=== PATIENT | male | born 1985 | race Caucasian/White ===

== ENCOUNTER 2016-08-12 16:45 | Emergency (ER) | payer SELFPAY ==
[~2016-08-12] VITALS: Ht 170.2 cm; Wt 59.9 kg
[2016-08-12] MEDS ORDERED: METOCLOPRAMIDE INJ 10MG/2ML VIAL (J2765) IV ONE (17:45)
[2016-08-12] MEDS ORDERED: KETOROLAC 30 MG/ML VIAL (J1885) IV ONE (17:45)
[2016-08-12] MEDS ORDERED: NS 1,000 ML IV ONE (17:45)
[2016-08-12] MEDS ORDERED: GASTROGRAFIN SOLUTION 30ML (Q9963) PO ONE ×2 (18:15)
[2016-08-12 18:47] LABS: BASO % 0.1 % (0.0-1.0); EOS % 0.2 % (0.0-3.0); LARGE UNSTAINED CELL # 0.3 K/mm3 (0.0-0.4); LARGE UNSTAINED CELL % 2.1 % (0.0-4.0); LYMPH # 1.7 K/mm3 (1.5-4.5); LYMPH % 13.8 % (24.0-44.0); MEAN CORPUSCULAR HEMOGLOBIN 31.7 pg (27.0-33.0); MEAN CORPUSCULAR HGB CONC 34.5 g/dl (32.0-36.5); MONO # 0.8 K/mm3 (0.0-0.8); MONO % 6.2 % (0.0-5.0); NEUTROPHILS # 9.5 K/mm3 (1.8-7.7); NEUTROPHILS % 77.7 % (36.0-66.0); PLATELET COUNT, AUTOMATED 279 k/mm3 (150-450); RED CELL DISTRIBUTION WIDTH 11.5 % (11.5-14.5); WHITE BLOOD COUNT 12.2 K/mm3 (4.0-10.0)
[2016-08-12 19:13] LABS: ALBUMIN 4.2 GM/DL (3.2-5.2); ALBUMIN/GLOBULIN RATIO 1.27 (1.00-1.93); ALKALINE PHOSPHATASE 66 U/L (45-117); ALT/SGPT 32 U/L (12-78); AMYLASE 52 U/L (25-115); ANION GAP 7 MEQ/L (8-16); AST/SGOT 25 U/L (15-37); BILIRUBIN,DIRECT 0.3 MG/DL (0.0-0.2); BILIRUBIN,TOTAL 1.4 MG/DL (0.2-1.0); BLOOD UREA NITROGEN 11 MG/DL (7-18); CALCIUM LEVEL 8.9 MG/DL (8.5-10.1); CARBON DIOXIDE LEVEL 27 MEQ/L (21-32); CHLORIDE LEVEL 105 MEQ/L (98-107); CREATININE FOR GFR 0.77 MG/DL (0.70-1.30); GLOMERULAR FILTRATION RATE > 60.0 (>60); GLUCOSE, FASTING 114 MG/DL (70-105); POTASSIUM SERUM 3.8 MEQ/L (3.5-5.1); SODIUM LEVEL 139 MEQ/L (136-145); TOTAL PROTEIN 7.5 GM/DL (6.4-8.2)
[2016-08-12] MEDS ORDERED: TRIMETHOBENZAMIDE HCL INJ 200 MG/2 ML VIAL (J3250) IM ONE (19:15)
[2016-08-12] MEDS ORDERED: ACETAMINOPHEN 325 MG TAB PO ONE (19:30)
[2016-08-12] MEDS ORDERED: ISOVUE-370 76% 100ML VIAL (Q9967) As Ordered ONE (20:45)
--- NOTE | 2016-08-12 22:00 | REPUSA ---
CLINICAL HISTORY: Diffuse abdominal pain, worse right lower quadrant. Fever, nausea and vomiting. TECHNIQUE: Multiple axial CT images were obtained through the abdomen and pelvis after administratio n of oral and intravenous contrast material. COMMENTS: The liver is of uniform attenuation without mass or defect. There is no intra or extrahepatic biliar y ductal dilatation. The spleen is normal. The gallbladder is within normal limits. The pancreas i s of normal contour and attenuation characteristics. There is no evidence of adrenal mass. Both kidneys demonstrate prompt and equal nephrograms. The kidneys are normal in size, shape and con figuration. There is no evidence of renal or ureteral mass. No renal or ureteral calculi are identi fied. There is no hydroureter or hydronephrosis. No evidence for appendicitis. There is evidence of relative severe circumferential wall thickening i nvolving duodenum and loops of jejunum compatible with severe enteritis. Infectious and inflammatory etiology is considered. No evidence for small or large bowel obstruction. There is no evidence of abdominal ascites or lymphadenopathy. Prostatic calcifications are present. There is no evidence of intrinsic or extrinsic bladder mass. There is no pelvic ascites or lymphaden opathy. Images of the lung bases show no evidence of pleural or parenchymal mass. There are no pleural effus ions. The bony structures are free of lytic or blastic lesions. There is a 5 mm nodule noted in the lingula. There is a 5 mm subpleural nodule noted in the left lower lobe. Consider followup with ded icated chest CT. IMPRESSION: 1. 5 mm nodule noted in the lingula. There is a 5 mm subpleural nodule noted in the left lower lob e. Consider followup with dedicated chest CT. 2. Relative severe circumferential wall thickening involving duodenum and loops of jejunum compatibl e with severe enteritis. Infectious and inflammatory etiology is considered. 3. Prostatic calcifications are present. Thank you for your kind referral of this patient. We appreciate the opportunity to participate in thi s patient's care.
[2016-08-12] MEDS ORDERED: FLAG500T PO (22:14)
[2016-08-12] MEDS ORDERED: CIPR500T89 PO (22:14)
[2016-08-12] MEDS ORDERED: REGL10TA6 PO (22:14)
[2016-08-12] MEDS ORDERED: METOCLOPRAMIDE 10 MG TAB PO ONE (22:15)
[2016-08-12] MEDS ORDERED: metroNIDAZOLE (FLAGYL) 500 MG TAB PO ONE (22:15)
[2016-08-12] MEDS ORDERED: ULTR50TA PO (22:15)
[2016-08-12] MEDS ORDERED: CIPROFLOXACIN 500 MG TAB PO ONE (22:15)
[2016-08-12 22:20] VITALS: BP 115/59
--- NOTE | 2016-08-16 15:21 | ED PDOC ---
Post-Departure Follow-Up certified letter sent to pt re formal read of ct abd/p for fu mlg no pcp listed Hermelinda Quintero MD Aug 16, 2016 15:21
== END 2016-08-12 22:30 | disposition home or self-care (01) ==
LOC: M ED 17:49
DX: K52.9 Noninfective gastroenteritis and colitis, unspecified (principal); F17.200 Nicotine dependence, unspecified, uncomplicated; R91.1 Solitary pulmonary nodule; N42.9 Disorder of prostate, unspecified
CPT/HCPCS: 74177; 80048; 80076; 81001; 82150; 83605; 83690; 85025; 86140; 96372; 96374; 96375; 99284; J1885; J2765; J3250; Q9963; Q9967

== ENCOUNTER 2017-12-09 12:23 | Inpatient (IN) | payer MEDICAID, SELFPAY ==
[2017-12-09] MEDS: FOLIC ACID 1 MG TAB PO (09:00)
[2017-12-09] MEDS: MULTIVITAMINS/MINERALS THERAP 1 TAB PO (09:00)
[2017-12-09] MEDS: NICOTINE 14 MG/24 HR TRANSDERMAL TD (09:00)
[2017-12-09] MEDS: THIAMINE 100 MG TAB PO (09:00)
[2017-12-09] MEDS: ONDANSETRON 4MG/2ML VIAL (J2405) IV ×3 (13:06→23:55)
[2017-12-09] MEDS: NS 1,000 ML IV ×4 (13:06→21:55)
[2017-12-09 13:33] LABS: BASO # 0.1 10^3/uL (0.0-0.2); BASO % 0.2 % (0.0-1.0); HEMATOCRIT 54.5 % (42.0-52.0); HEMOGLOBIN 19.4 g/dl (13.5-17.5); IMMATURE GRANULOCYTE % 1.5 % (0-3.0); LYMPH # 2.5 10^3/uL (1.5-4.5); LYMPH % 8.9 % (24.0-44.0); MEAN CORPUSCULAR HEMOGLOBIN 30.8 pg (27.0-33.0); MEAN CORPUSCULAR HGB CONC 35.6 g/dl (32.0-36.5); MEAN CORPUSCULAR VOLUME 86.5 fl (80.0-96.0); MONO # 1.7 10^3/uL (0.0-0.8); MONO % 6.1 % (0.0-5.0); NEUTROPHILS # 23.3 10^3/uL (1.8-7.7); NEUTROPHILS % 83.3 % (36.0-66.0); PLATELET COUNT, AUTOMATED 496 10^3/uL (150-450); RED CELL DISTRIBUTION WIDTH 12.3 % (11.5-14.5)
[2017-12-09 14:02] LABS: ANION GAP 19 MEQ/L (8-16); BLOOD UREA NITROGEN 38 MG/DL (7-18); CALCIUM LEVEL 11.9 MG/DL (8.5-10.1); CARBON DIOXIDE LEVEL 21 MEQ/L (21-32); CHLORIDE LEVEL 95 MEQ/L (98-107); GLOMERULAR FILTRATION RATE 14.2 (>60); GLUCOSE, FASTING 159 MG/DL (70-100); SODIUM LEVEL 135 MEQ/L (136-145)
[2017-12-09 14:34] LABS: ALBUMIN 5.5 GM/DL (3.2-5.2); ALBUMIN/GLOBULIN RATIO 0.95 (1.00-1.93); ALKALINE PHOSPHATASE 109 U/L (45-117); ALT/SGPT 38 U/L (12-78); AMYLASE 94 U/L (25-115); AST/SGOT 27 U/L (7-37); BILIRUBIN,DIRECT 0.1 MG/DL (0.0-0.2); BILIRUBIN,TOTAL 1.1 MG/DL (0.2-1.0); LIPASE 140 U/L (73-393); TOTAL PROTEIN 11.3 GM/DL (6.4-8.2)
[2017-12-09] MEDS: MORPHINE 2 MG/ML 1ML SYRINGE (J2270) IV ×2 (15:30→19:50)
[2017-12-09 15:50] LABS: VENOUS BASE EXCESS 0.6 (-2.0-2.0); VENOUS HCO3 23.9 MEQ/L (23.0-27.0); VENOUS O2 SATURATION 56.3 % (60.0-80.0); VENOUS PARTIAL PRESSURE CO2 35.1 mmHg (38.0-50.0); VENOUS PARTIAL PRESSURE O2 31.2 mmHg (30.0-50.0); VENOUS PH 7.451 UNITS (7.330-7.430); VENOUS STANDARD HCO3 23.8 MEQ/L
[2017-12-09] MEDS: ACETAMINOPHEN 325 MG TAB PO (16:05)
[2017-12-09 16:19] LABS: KETONE, URINE AUTO RFX NEGATIVE (NEGATIVE); LEUKOCYTE ESTERASE UR AUTO RFX NEGATIVE (NEGATIVE); MUCUS, URINE RFX LARGE (NEGATIVE); NITRITE, URINE AUTO RFX NEGATIVE (NEGATIVE); RBC, URINE AUTO RFX 3 /HPF (0-3); SPECIFIC GRAVITY UR AUTO RFX 1.025 (1.002-1.035); SQUAM EPITHELIAL CELL UR AURFX 1 /HPF (0-6)
[2017-12-09 16:21] LABS: WBC, URINE AUTO RFX 16 /HPF (0-3)
[2017-12-09 16:27] LABS: OSMOLALITY URINE 654 MOSM/KG (500-800)
[2017-12-09 16:32] LABS: LACTIC ACID SEPSIS PROTOCOL 2.6 MMOL/L (0.4-2.0)
[2017-12-09 16:38] LABS: AMPHETAMINES LEVEL URINE NEGATIVE (NEGATIVE); BARBITURATES URINE NEGATIVE (NEGATIVE); BENZODIAZEPINES URINE NEGATIVE (NEGATIVE); CANNABINOIDS URINE POSITIVE (NEGATIVE); CHLORIDE,RANDOM URINE < 10 MEQ/L; COCAINE METABOLITE URINE NEGATIVE (NEGATIVE); METHADONE URINE NEGATIVE (NEGATIVE); OPIATES URINE POSITIVE (NEGATIVE); PHENCYCLIDINE URINE NEGATIVE (NEGATIVE); POTASSIUM RANDOM URINE 97.3 MEQ/L; SODIUM,RANDOM URINE 17 MEQ/L; TOTAL PROTEIN,RANDOM URINE 107.3 MG/DL (0.0-12.0)
[2017-12-09 22:18] LABS: C REACTIVE PROTEIN QUANTITATIV < 0.30 MG/DL (0.00-0.30); CPK CREATINE PHOSPHOKINASE 340 U/L (39-308); ETHYL ALCOHOL (ETHANOL) < 0.003 % (0.000-0.010); MB/CK RELATIVE INDEX 1.18 (< OR =4); SALICYLATE LEVEL < 1.7 MG/DL (5.0-30.0); TROPONIN I 0.02 NG/ML (< 0.10)
[2017-12-09 22:19] LABS: ALBUMIN 3.9 GM/DL (3.2-5.2); ANION GAP 10 MEQ/L (8-16); BLOOD UREA NITROGEN 32 MG/DL (7-18); CALCIUM LEVEL 8.9 MG/DL (8.5-10.1); CARBON DIOXIDE LEVEL 22 MEQ/L (21-32); CHLORIDE LEVEL 107 MEQ/L (98-107); CREATININE FOR GFR 1.79 MG/DL (0.70-1.30); GLOMERULAR FILTRATION RATE 47.4 (>60); GLUCOSE, FASTING 102 MG/DL (70-100); PHOSPHORUS LEVEL 3.8 MG/DL (2.5-4.9); POTASSIUM SERUM 4.2 MEQ/L (3.5-5.1); SODIUM LEVEL 139 MEQ/L (136-145)
[2017-12-09] MEDS: HEPARIN SOD (PORCINE) 5000 UNITS/ML VIAL SC (22:58)
[2017-12-09] MEDS: PIPERACILLIN/TAZOBACTAM SOD 3.375 GM in D5W MINI-BAG PLUS 50 ML IV (23:01)
[2017-12-09 23:34] LABS: CHLAMYDIA DNA AMPLIFICATION NEGATIVE (NEGATIVE); GC DNA AMPLIFICATION NEGATIVE (NEGATIVE)
[2017-12-10] MEDS: METOCLOPRAMIDE INJ 10MG/2ML VIAL (J2765) IV (03:15)
[2017-12-10] MEDS: NS 1,000 ML IV ×2 (04:35→14:44)
[2017-12-10] MEDS: PIPERACILLIN/TAZOBACTAM SOD 3.375 GM in D5W MINI-BAG PLUS 50 ML IV ×3 (06:00→18:00)
[2017-12-10] MEDS: ONDANSETRON 4MG/2ML VIAL (J2405) IV ×4 (07:00→21:23)
[2017-12-10] MEDS: ACETAMINOPHEN TAB 650MG DOSE (2X325MG) PO (07:00)
[2017-12-10 08:05] LABS: BASO % 0.2 % (0.0-1.0); EOS % 0.2 % (0.0-3.0); HEMATOCRIT 38.3 % (42.0-52.0); IMMATURE GRANULOCYTE % 0.8 % (0-3.0); LYMPH # 2.3 10^3/uL (1.5-4.5); LYMPH % 13.9 % (24.0-44.0); MEAN CORPUSCULAR HEMOGLOBIN 31.1 pg (27.0-33.0); MEAN CORPUSCULAR HGB CONC 35.5 g/dl (32.0-36.5); MEAN CORPUSCULAR VOLUME 87.6 fl (80.0-96.0); MONO # 1.7 10^3/uL (0.0-0.8); MONO % 10.5 % (0.0-5.0); NEUTROPHILS # 12.2 10^3/uL (1.8-7.7); NEUTROPHILS % 74.4 % (36.0-66.0); RED BLOOD COUNT 4.37 10^6/uL (4.30-6.10); WHITE BLOOD COUNT 16.4 10^3/uL (4.0-10.0)
[2017-12-10 08:10] LABS: HEMOGLOBIN 13.6 g/dl (13.5-17.5); PLATELET COUNT, AUTOMATED 311 10^3/uL (150-450)
[2017-12-10 08:43] LABS: ALBUMIN 3.8 GM/DL (3.2-5.2); ANION GAP 8 MEQ/L (8-16); BLOOD UREA NITROGEN 27 MG/DL (7-18); CALCIUM LEVEL 8.7 MG/DL (8.5-10.1); CARBON DIOXIDE LEVEL 26 MEQ/L (21-32); CHLORIDE LEVEL 106 MEQ/L (98-107); CPK CREATINE PHOSPHOKINASE 308 U/L (39-308); CREATININE FOR GFR 0.97 MG/DL (0.70-1.30); GLOMERULAR FILTRATION RATE > 60.0 (>60); GLUCOSE, FASTING 112 MG/DL (70-100); MB/CK RELATIVE INDEX 1.17 (< OR =4); PHOSPHORUS LEVEL 2.6 MG/DL (2.5-4.9); POTASSIUM SERUM 3.9 MEQ/L (3.5-5.1); SODIUM LEVEL 140 MEQ/L (136-145); TROPONIN I < 0.02 NG/ML (< 0.10)
[2017-12-10] MEDS: ALBUTEROL SULFATE 2.5 MG/0.5 ML INH NEB SOLN NEB (10:15)
[2017-12-10 10:50] LABS: HIV 1&2 SCREEN CENTAUR NEGATIVE (NEGATIVE)
[2017-12-10] MEDS: NICOTINE 14 MG/24 HR TRANSDERMAL TD (11:24)
[2017-12-10] MEDS: THIAMINE 100 MG TAB PO (11:24)
[2017-12-10] MEDS: FOLIC ACID 1 MG TAB PO (11:24)
[2017-12-10] MEDS: HEPARIN SOD (PORCINE) 5000 UNITS/ML VIAL SC ×2 (11:24→21:21)
[2017-12-10] MEDS: MULTIVITAMINS/MINERALS THERAP 1 TAB PO (11:24)
[2017-12-11] MEDS: PIPERACILLIN/TAZOBACTAM SOD 3.375 GM in D5W MINI-BAG PLUS 50 ML IV ×4 (00:06→18:20)
[2017-12-11 05:07] LABS: BASO % 0.2 % (0.0-1.0); EOS # 0.1 10^3/uL (0.0-0.50); EOS % 0.6 % (0.0-3.0); HEMATOCRIT 34.6 % (42.0-52.0); HEMOGLOBIN 12.1 g/dl (13.5-17.5); IMMATURE GRANULOCYTE % 0.9 % (0-3.0); LYMPH # 2.8 10^3/uL (1.5-4.5); LYMPH % 24.4 % (24.0-44.0); MEAN CORPUSCULAR VOLUME 88.7 fl (80.0-96.0); MONO # 1.4 10^3/uL (0.0-0.8); MONO % 12.1 % (0.0-5.0); NEUTROPHILS # 7.2 10^3/uL (1.8-7.7); NEUTROPHILS % 61.8 % (36.0-66.0); PLATELET COUNT, AUTOMATED 271 10^3/uL (150-450); RED CELL DISTRIBUTION WIDTH 11.9 % (11.5-14.5); WHITE BLOOD COUNT 11.7 10^3/uL (4.0-10.0)
[2017-12-11 05:37] LABS: ALBUMIN 3.5 GM/DL (3.2-5.2); ANION GAP 9 MEQ/L (8-16); BLOOD UREA NITROGEN 15 MG/DL (7-18); CALCIUM LEVEL 8.7 MG/DL (8.5-10.1); CARBON DIOXIDE LEVEL 23 MEQ/L (21-32); CHLORIDE LEVEL 107 MEQ/L (98-107); CREATININE FOR GFR 0.68 MG/DL (0.70-1.30); GLOMERULAR FILTRATION RATE > 60.0 (>60); GLUCOSE, FASTING 106 MG/DL (70-100); PHOSPHORUS LEVEL 2.4 MG/DL (2.5-4.9); POTASSIUM SERUM 3.7 MEQ/L (3.5-5.1); SODIUM LEVEL 139 MEQ/L (136-145)
[2017-12-11] MEDS: NS 1,000 ML IV (06:07)
[2017-12-11] MEDS: NICOTINE 14 MG/24 HR TRANSDERMAL TD (09:53)
[2017-12-11] MEDS: FOLIC ACID 1 MG TAB PO (09:54)
[2017-12-11] MEDS: THIAMINE 100 MG TAB PO (09:54)
[2017-12-11] MEDS: MULTIVITAMINS/MINERALS THERAP 1 TAB PO (09:54)
[2017-12-11] MEDS: HEPARIN SOD (PORCINE) 5000 UNITS/ML VIAL SC ×2 (09:54→20:56)
[2017-12-11] MEDS: INFLUENZA QUADRIVALENT PF VACCINE 0.5ML SYRINGE (90686) IM (09:54)
[2017-12-11] MEDS: ONDANSETRON 4MG/2ML VIAL (J2405) IV ×2 (11:55→21:02)
[2017-12-12] MEDS: PIPERACILLIN/TAZOBACTAM SOD 3.375 GM in D5W MINI-BAG PLUS 50 ML IV ×5 (00:38→23:54)
[2017-12-12 05:55] LABS: BASO % 0.4 % (0.0-1.0); EOS # 0.2 10^3/uL (0.0-0.50); EOS % 2.3 % (0.0-3.0); HEMATOCRIT 35.7 % (42.0-52.0); HEMOGLOBIN 12.7 g/dl (13.5-17.5); IMMATURE GRANULOCYTE % 0.7 % (0-3.0); LYMPH # 2.3 10^3/uL (1.5-4.5); LYMPH % 24.6 % (24.0-44.0); MEAN CORPUSCULAR HEMOGLOBIN 30.7 pg (27.0-33.0); MEAN CORPUSCULAR HGB CONC 35.6 g/dl (32.0-36.5); MEAN CORPUSCULAR VOLUME 86.2 fl (80.0-96.0); MONO # 1.1 10^3/uL (0.0-0.8); MONO % 11.4 % (0.0-5.0); NEUTROPHILS # 5.8 10^3/uL (1.8-7.7); NEUTROPHILS % 60.6 % (36.0-66.0); PLATELET COUNT, AUTOMATED 279 10^3/uL (150-450); RED BLOOD COUNT 4.14 10^6/uL (4.30-6.10); RED CELL DISTRIBUTION WIDTH 11.6 % (11.5-14.5); WHITE BLOOD COUNT 9.5 10^3/uL (4.0-10.0)
[2017-12-12 06:29] LABS: ALBUMIN 3.5 GM/DL (3.2-5.2); ANION GAP 10 MEQ/L (8-16); BLOOD UREA NITROGEN 13 MG/DL (7-18); CALCIUM LEVEL 8.7 MG/DL (8.5-10.1); CARBON DIOXIDE LEVEL 23 MEQ/L (21-32); CHLORIDE LEVEL 107 MEQ/L (98-107); CREATININE FOR GFR 0.67 MG/DL (0.70-1.30); GLOMERULAR FILTRATION RATE > 60.0 (>60); GLUCOSE, FASTING 106 MG/DL (70-100); POTASSIUM SERUM 3.5 MEQ/L (3.5-5.1); SODIUM LEVEL 140 MEQ/L (136-145)
[2017-12-12] MEDS: NICOTINE 14 MG/24 HR TRANSDERMAL TD (08:48)
[2017-12-12] MEDS: THIAMINE 100 MG TAB PO (08:48)
[2017-12-12] MEDS: HEPARIN SOD (PORCINE) 5000 UNITS/ML VIAL SC ×2 (08:48→20:27)
[2017-12-12] MEDS: FOLIC ACID 1 MG TAB PO (08:48)
[2017-12-12] MEDS: MULTIVITAMINS/MINERALS THERAP 1 TAB PO (08:48)
[2017-12-12] MEDS: PANTOPRAZOLE 40MG TAB (PROTONIX) PO (15:19)
[2017-12-12] MEDS: ONDANSETRON 4MG/2ML VIAL (J2405) IV ×2 (15:19→20:27)
[2017-12-12] MEDS: METOCLOPRAMIDE INJ 10MG/2ML VIAL (J2765) IV (18:28)
[2017-12-13] MEDS: ONDANSETRON 4MG/2ML VIAL (J2405) IV (05:15)
[2017-12-13] MEDS: PIPERACILLIN/TAZOBACTAM SOD 3.375 GM in D5W MINI-BAG PLUS 50 ML IV ×3 (05:16→17:55)
[2017-12-13 06:24] LABS: BASO % 0.4 % (0.0-1.0); EOS # 0.3 10^3/uL (0.0-0.50); EOS % 3.1 % (0.0-3.0); HEMATOCRIT 36.9 % (42.0-52.0); HEMOGLOBIN 13.4 g/dl (13.5-17.5); IMMATURE GRANULOCYTE % 0.5 % (0-3.0); LYMPH # 1.7 10^3/uL (1.5-4.5); LYMPH % 19.8 % (24.0-44.0); MEAN CORPUSCULAR HGB CONC 36.3 g/dl (32.0-36.5); MEAN CORPUSCULAR VOLUME 85.4 fl (80.0-96.0); MONO # 0.8 10^3/uL (0.0-0.8); MONO % 9.7 % (0.0-5.0); NEUTROPHILS # 5.5 10^3/uL (1.8-7.7); NEUTROPHILS % 66.5 % (36.0-66.0); PLATELET COUNT, AUTOMATED 299 10^3/uL (150-450); RED BLOOD COUNT 4.32 10^6/uL (4.30-6.10); RED CELL DISTRIBUTION WIDTH 11.3 % (11.5-14.5); WHITE BLOOD COUNT 8.3 10^3/uL (4.0-10.0)
[2017-12-13 06:47] LABS: ALBUMIN 3.5 GM/DL (3.2-5.2); ANION GAP 7 MEQ/L (8-16); BLOOD UREA NITROGEN 13 MG/DL (7-18); CALCIUM LEVEL 8.8 MG/DL (8.5-10.1); CARBON DIOXIDE LEVEL 27 MEQ/L (21-32); CHLORIDE LEVEL 106 MEQ/L (98-107); CREATININE FOR GFR 0.82 MG/DL (0.70-1.30); GLOMERULAR FILTRATION RATE > 60.0 (>60); GLUCOSE, FASTING 111 MG/DL (70-100); PHOSPHORUS LEVEL 3.6 MG/DL (2.5-4.9); POTASSIUM SERUM 3.3 MEQ/L (3.5-5.1); SODIUM LEVEL 140 MEQ/L (136-145)
[2017-12-13] MEDS: POTASSIUM CHLORIDE 10 MEQ SR TABLET PO (07:45)
[2017-12-13] MEDS: FOLIC ACID 1 MG TAB PO (07:50)
[2017-12-13] MEDS: PANTOPRAZOLE 40MG TAB (PROTONIX) PO ×2 (07:51→11:03)
[2017-12-13] MEDS: MULTIVITAMINS/MINERALS THERAP 1 TAB PO (07:51)
[2017-12-13] MEDS: HEPARIN SOD (PORCINE) 5000 UNITS/ML VIAL SC ×2 (07:51→19:50)
[2017-12-13] MEDS: NICOTINE 14 MG/24 HR TRANSDERMAL TD ×2 (07:51→19:50)
[2017-12-13] MEDS: THIAMINE 100 MG TAB PO (07:51)
[2017-12-13 12:03] LABS: HEPATITIS A ANTIBODY IGM NEGATIVE (NEGATIVE); HEPATITIS B CORE ANTIBODY IGM NEGATIVE (NEGATIVE); HEPATITIS B SURFACE ANTIGEN NEGATIVE (NEGATIVE)
[2017-12-13 12:03] LABS: HEPATITIS C VIRUS ABY INDEX 0.2 INDEX (<0.8)
[2017-12-13 16:33] LABS: C REACTIVE PROTEIN QUANTITATIV < 0.30 MG/DL (0.00-0.30)
[2017-12-14 06:10] LABS: BASO # 0.1 10^3/uL (0.0-0.2); BASO % 0.9 % (0.0-1.0); EOS # 0.6 10^3/uL (0.0-0.50); EOS % 7.7 % (0.0-3.0); HEMATOCRIT 36.9 % (42.0-52.0); HEMOGLOBIN 13.2 g/dl (13.5-17.5); IMMATURE GRANULOCYTE % 0.6 % (0-3.0); LYMPH # 2.9 10^3/uL (1.5-4.5); LYMPH % 35.2 % (24.0-44.0); MEAN CORPUSCULAR HEMOGLOBIN 31.4 pg (27.0-33.0); MEAN CORPUSCULAR HGB CONC 35.8 g/dl (32.0-36.5); MEAN CORPUSCULAR VOLUME 87.9 fl (80.0-96.0); MONO # 0.9 10^3/uL (0.0-0.8); MONO % 10.9 % (0.0-5.0); NEUTROPHILS # 3.7 10^3/uL (1.8-7.7); NEUTROPHILS % 44.7 % (36.0-66.0); PLATELET COUNT, AUTOMATED 284 10^3/uL (150-450); RED CELL DISTRIBUTION WIDTH 11.5 % (11.5-14.5); WHITE BLOOD COUNT 8.2 10^3/uL (4.0-10.0)
[2017-12-14 06:23] LABS: ALBUMIN 3.1 GM/DL (3.2-5.2); ANION GAP 6 MEQ/L (8-16); BLOOD UREA NITROGEN 10 MG/DL (7-18); CALCIUM LEVEL 8.3 MG/DL (8.5-10.1); CARBON DIOXIDE LEVEL 27 MEQ/L (21-32); CHLORIDE LEVEL 107 MEQ/L (98-107); CREATININE FOR GFR 0.71 MG/DL (0.70-1.30); GLOMERULAR FILTRATION RATE > 60.0 (>60); GLUCOSE, FASTING 94 MG/DL (70-100); MAGNESIUM LEVEL 1.9 MG/DL (1.8-2.4); PHOSPHORUS LEVEL 3.4 MG/DL (2.5-4.9); POTASSIUM SERUM 3.9 MEQ/L (3.5-5.1); SODIUM LEVEL 140 MEQ/L (136-145)
[2017-12-14 07:19] LABS: ERYTHROCYTE SEDIMENTATION RATE 3 mm/hr (0-15)
[2017-12-14] MEDS: HEPARIN SOD (PORCINE) 5000 UNITS/ML VIAL SC (08:08)
[2017-12-14] MEDS: MULTIVITAMINS/MINERALS THERAP 1 TAB PO (08:08)
[2017-12-14] MEDS: FOLIC ACID 1 MG TAB PO (08:08)
[2017-12-14] MEDS: PANTOPRAZOLE 40MG TAB (PROTONIX) PO (10:04)
[2017-12-14 16:35] LABS: ALBUMIN/GLOBULIN RATIO 0.97 (1.00-1.93); ALKALINE PHOSPHATASE 57 U/L (45-117); ALT/SGPT 31 U/L (12-78); AST/SGOT 14 U/L (7-37); BILIRUBIN,DIRECT 0.2 MG/DL (0.0-0.2); BILIRUBIN,TOTAL 0.7 MG/DL (0.2-1.0); TOTAL PROTEIN 6.3 GM/DL (6.4-8.2)
[2017-12-15] MEDS ORDERED: THIAMINE 100 MG TAB PO (09:00)
[2017-12-16 00:07] LABS: Lyme Disease IgG/IgM Antibodie <0.91 ISR (0.00-0.90); Lyme Disease IgM Ab Quantitati <0.80 index (0.00-0.79)
== END 2017-12-14 17:38 | disposition home or self-care (01) | DRG 460 ==
LOC: M PCU 12-10 14:28 → M ED 12:23 → M MSPAV 12-11 14:58 → M ED INP 19:51
DX: N17.9 Acute kidney failure, unspecified (principal); F11.10 Opioid abuse, uncomplicated; F17.200 Nicotine dependence, unspecified, uncomplicated; D72.829 Elevated white blood cell count, unspecified; J45.909 Unspecified asthma, uncomplicated; F17.210 Nicotine dependence, cigarettes, uncomplicated; Z79.899 Other long term (current) drug therapy; E86.0 Dehydration; F12.10 Cannabis abuse, uncomplicated; R50.9 Fever, unspecified; R11.2 Nausea with vomiting, unspecified

== ENCOUNTER → 2018-01-19 | Outpatient (CLI) | payer OTHER, MEDICAID | LOC: M LRY 20:06 | DX: M79.672 Pain in left foot (principal) | CPT/HCPCS: 73630 ==

== ENCOUNTER 2018-02-22 05:55 | Day surgery (SDC) | payer OTHER ==
[2018-02-22] MEDS: LR 1,000 ML IV (06:33)
[2018-02-22] MEDS ORDERED: PROPOFOL 200 MG/20 ML VIAL As Ordered ×2 (06:56)
[2018-02-22] MEDS ORDERED: fentaNYL 250 MCG/5 ML INJECTION (J3010) As Ordered (06:57)
[2018-02-22] MEDS ORDERED: KETOROLAC 60 MG/2 ML VIAL (J1885) As Ordered (06:57)
[2018-02-22] MEDS ORDERED: dexameTHASONE 4 MG/ML 1ML VIAL (J1100) As Ordered (06:57)
[2018-02-22] MEDS ORDERED: ONDANSETRON 4MG/2ML VIAL (J2405) As Ordered (06:57)
[2018-02-22] MEDS ORDERED: LIDOCAINE 2% INJ 100 MG/5 ML SDV (FOR ANES.) As Ordered (06:57)
[2018-02-22] MEDS ORDERED: MIDAZOLAM INJ 2 MG/2 ML VIAL (J2250) As Ordered (06:58)
[2018-02-22] MEDS ORDERED: ROCURONIUM BROMIDE 50 MG/5 ML VIAL As Ordered (06:59)
[2018-02-22] MEDS: ceFAZolin SOD 1 GM in D5W MINI-BAG PLUS 50 ML IV (07:43)
[2018-02-22] MEDS: BUPIVACAINE/EPIN 0.25% 30 ML VIAL As Ordered (08:09)
[2018-02-22] MEDS ORDERED: SUGAMMADEX SODIUM 500 MG/5 ML VIAL (BRIDION) As Ordered (08:17)
[2018-02-22] MEDS ORDERED: ALBUTEROL 6.7GM INHALER **FOR ANES. CART/OMNICELL ONLY As Ordered (08:55)
[2018-02-22] MEDS ORDERED: LR 1,000 ML IV ×2 (09:30→09:45)
[2018-02-22] MEDS: PERCOCET 5MG/325MG TAB PO ×2 (09:40→10:00)
[2018-02-22] MEDS: fentaNYL 100 MCG/2 ML INJECTION (J3010) IV ×4 (09:40→09:57)
[2018-02-22] MEDS ORDERED: KETOROLAC 30 MG/ML VIAL (J1885) IV ×2 (09:45→15:00)
[2018-02-22] MEDS ORDERED: NORCO, ANEXSIA 5/325MG TABLET (HYDROcodone/ACETAMINOPHEN) PO (09:45)
[2018-02-22] MEDS ORDERED: PANTOPRAZOLE 40MG INJ (PROTONIX) (C9113) IV (09:45)
[2018-02-22] MEDS: ONDANSETRON 4MG/2ML VIAL (J2405) IV (09:49)
== END 2018-02-22 10:41 | disposition home or self-care (01) ==
LOC: M SDC 05:55
DX: K40.90 Unilateral inguinal hernia, without obstruction or gangrene, not specified as recurrent (principal); K21.9 Gastro-esophageal reflux disease without esophagitis; J45.909 Unspecified asthma, uncomplicated; F17.210 Nicotine dependence, cigarettes, uncomplicated; Z79.899 Other long term (current) drug therapy
CPT/HCPCS: 49650

== ENCOUNTER 2018-07-08 23:47 | Inpatient (IN) | payer OTHER ==
[~2018-07-08] VITALS: Ht 170.2 cm; Wt 59.9 kg
[~2018-07-08 23:47] MED LIST: CIPR-249 PO; FLAG500T PO; FOLI1TAB11 PO; NICO14PA TD; REGL10TA6 PO; THIA100TA PO; ULTR50TA8 PO; VITMTA PO
[2018-07-09] MEDS ORDERED: METOCLOPRAMIDE INJ 10MG/2ML VIAL (J2765) IV ONE
[2018-07-09 00:48] LABS: BASO % 0.2 % (0.0-1.0); HEMOGLOBIN 17.9 g/dl (13.5-17.5); LYMPH # 2.9 10^3/uL (1.5-4.5); LYMPH % 13.2 % (24.0-44.0); MEAN CORPUSCULAR HEMOGLOBIN 30.8 pg (27.0-33.0); MEAN CORPUSCULAR HGB CONC 35.8 g/dl (32.0-36.5); MEAN CORPUSCULAR VOLUME 86.1 fl (80.0-96.0); MONO # 1.8 10^3/uL (0.0-0.8); MONO % 8.2 % (0.0-5.0); NEUTROPHILS # 16.9 10^3/uL (1.8-7.7); NEUTROPHILS % 77.6 % (36.0-66.0); PLATELET COUNT, AUTOMATED 409 10^3/uL (150-450); RED BLOOD COUNT 5.81 10^6/uL (4.30-6.10); WHITE BLOOD COUNT 21.8 10^3/uL (4.0-10.0)
[2018-07-09 01:10] LABS: ALBUMIN 5.5 GM/DL (3.2-5.2); BILIRUBIN,DIRECT 0.2 MG/DL (0.0-0.2); BILIRUBIN,TOTAL 1.3 MG/DL (0.2-1.0); CALCIUM LEVEL 10.5 MG/DL (8.5-10.1); CREATININE FOR GFR 2.3 MG/DL (0.70-1.30); GLOMERULAR FILTRATION RATE 35.3 (>60); POTASSIUM SERUM 4.1 MEQ/L (3.5-5.1); TOTAL PROTEIN 10.1 GM/DL (6.4-8.2)
[2018-07-09] MEDS ORDERED: diphenhydrAMINE INJ 50MG/ML VIAL (J1200) IV STA (01:37)
[2018-07-09] MEDS ORDERED: HALOPERIDOL 5 MG/ML VIAL (J1630) IV STA (01:37)
[2018-07-09] MEDS ORDERED: NS 1,000 ML IV ONE ×3 (01:45→03:45)
--- NOTE | 2018-07-09 02:48 | REPVR ---
EXAM: CT Abdomen and Pelvis Without Contrast EXAM DATE/TIME: 07/09/18 (1:36am) CLINICAL HISTORY: 32 year old male with generalized abdominal pain and emesis. Elevated creatinine. TECHNIQUE: Imaging protocol: Axial computed tomography images of the abdomen and pelvis without contrast. Coronal and sagittal reformatted images were created and reviewed. Radiation optimization: All CT scans at this facility use at least one of these dose optimization techniques: automated exposure control; mA and/or kV adjustment per patient size (includes targeted exams where dose is matched to clinical indication); or iterative reconstruction. COMPARISON: CT ABDOMEN PELVIS of 12/09/17 FINDINGS: ABDOMEN: Liver: Normal. No solid mass. Gallbladder and bile ducts: Normal. No calcified stones. No ductal dilatation. Pancreas: Normal. No ductal dilatation. Spleen: Normal. No splenomegaly. Adrenals: Normal. No mass. Kidneys and ureters: Normal. No hydronephrosis. Stomach and bowel: Normal. No bowel obstruction. No mucosal thickening. Appendix: No evidence of appendicitis. PELVIS: Bladder: Unremarkable as visualized. Reproductive: Unremarkable as visualized. ABDOMEN and PELVIS: Intraperitoneal space: Normal. No free air. No significant fluid collection. Bones/joints: No acute fracture nor dislocation. Soft tissues: Unremarkable. Vasculature: Normal. No abdominal aortic aneurysm. Lymph nodes: Normal. No enlarged lymph nodes. Other findings: Paucity of fat in the abdomen and pelvis. IMPRESSION: No acute findings. Electronically signed by: Morenita Mason On 07/09/2018 02:47:56 AM
[2018-07-09] MEDS: NS 1,000 ML IV SCH ×3 (03:45→21:47)
[2018-07-09] MEDS ORDERED: ACETAMINOPHEN TAB 650MG DOSE (2X325MG) PO PRN (03:45)
[2018-07-09 03:50] VITALS: BP 112/69
--- NOTE | 2018-07-09 04:09 | HPEPDOC ---
General Date of Admission Jul 09, 2018 at 03:16 Primary Care Physician: A Chief Complaint The patient is a 32-year-old male admitted with a reason for visit of Acute Kidney Failure. Source: Patient, Family History of Present Illness 32 y/o M c/o worsening nausea, vomiting for past 2 days, inability to take PO food/liquid due to nausea/vomiting. No specific aggravating or relieving factor. Pt also c/o decreased urine output. In ER pt was found with vitals of BP 146/67, HR 83, RR 16, Temp 98.0, SpO2-99% on RA; CT abdomen no acute pathology, pt was given NS bolus 2 liters, iv reglan, benadryl, haldol. Labs showed elevated BUN/cr Hospitalist service was consulted to admit the pt for further management. Pt was seen and examined at bedside at bedside. Family members at bedside. Pt was restring comfortably in bed. Pt stated that his nausea/vomiting resolved and he is feeling much better after getting treatment in ER. At the time of examination pt did not have any physical complaint. Home Medications No Active Prescriptions or Reported Meds Allergies Coded Allergies: No Known Allergies (Unverified , 02/14/18) Past Medical History Medical History GERD, nicotine dependence, marijuana abuse, h/o illicit drug abuse, Asthma- not on medication, h/o suicide attempt- was situational- after of his . Surgical History tonsillectomy, left inguinal hernia repair Family History reviewed non contributory Social History * Smoker: current smoker Alcohol: occationally Drugs: marijuana A-FIB/CHADSVASC A-FIB History Current/History of A-Fib/PAF?: No Review of Systems Other systems 10 points review of system was performed and it was negative except as per HPI Physical Examination General Exam: Positive: Alert, No Acute Distress Eye Exam: Positive: PERRLA ENT Exam: Positive: Atraumatic, Mucous membr. moist/pink Neck Exam: Positive: Supple Chest Exam: Positive: Clear to auscultation, Normal air movement Heart Exam: Positive: Rate Normal, Normal S1, Normal S2 Abdomen Exam: Positive: Normal bowel sounds, Soft, Tenderness Extremity Exam: Positive: Clubbing Skin Exam: Positive: Nl turgor and temperature Neuro Exam: Positive: Normal Speech, Strength at 5/5 X4 ext, Cranial Nerves 3- 12 NL Psych Exam: Positive: Mental status NL Vital Signs Vital Signs Date Time Temp Pulse Resp B/P (MAP) Pulse Ox O2 Delivery O2 Flow Rate FiO2 07/09/18 03:17 61 20 94 Room Air 07/09/18 03:15 97/56 (70) 07/08/18 23:48 98.6 Laboratory Data Labs 24H Laboratory Tests 2 07/09/18 00:34: Immature Granulocyte % (Auto) 0.8, White Blood Count 21.8H, Red Blood Count 5.81, Hemoglobin 17.9H, Hematocrit 50.0, Mean Corpuscular Volume 86.1, Mean Corpuscular Hemoglobin 30.8, Mean Corpuscular Hemoglobin Concent 35.8, Red Cell Distribution Width 12.2, Platelet Count 409, Neutrophils (%) (Auto) 77.6H, Lymp hocytes (%) (Auto) 13.2L, Monocytes (%) (Auto) 8.2H, Eosinophils (%) (Auto) 0.0, Basophils (%) (Auto) 0.2, Neutrophils # (Auto) 16.9H, Lymphocytes # (Auto) 2.9, Monocytes # (Auto) 1.8H, Eosinophils # (Auto) 0.0, Basophils # (Auto) 0.0, Nucleated Red Blood Cells % (auto) 0.0, Anion Gap 11, Glomerular Filtration Rate 35.3L, Calcium Level 10.5H, Aspartate Amino Transf (AST/SGOT) 17, Alanine Aminotransferase (ALT/SGPT) 27, Alkaline Phosphatase 102, Total Bilirubin 1.3H, Direct Bilirubin 0.2, Total Protein 10.1H, Albumin 5.5H, Albumin/Globulin Ratio 1.20, Lipase 102 CBC/BMP Laboratory Tests 07/09/18 00:34 Red Blood Count 5.81, Mean Corpuscular Volume 86.1, Mean Corpuscular Hemoglobin 30.8, Mean Corpuscular Hemoglobin Concent 35.8, Red Cell Distribution Width 12.2, Neutrophils (%) (Auto) 77.6 H, Lymphocytes (%) (Auto) 13.2 L, Monocytes (%) (Auto) 8.2 H, Eosinophils (%) (Auto) 0.0, Basophils (%) (Auto) 0.2, Neutrophils # (Auto) 16.9 H, Lymphocytes # (Auto) 2.9, Monocytes # (Auto) 1.8 H, Eosinophils # (Auto) 0.0, Basophils # (Auto) 0.0 Assessment/Plan 32 y/o M c/o inability to take oral food/liquid due to persistent nausea/vomiting and decreased urine output for past 2 days; in ER pt was given iv haldol, iv reglan after that nausea/vomiting resolved. Labs and imaging studies reviewed. WBC 22 H/H 18.8/50 BUN/Cr 29/2.3 was 10/0.71 on 12/14/2017 Lipase [address] abdomen/pelvis- no acute pathology Impression- BHARAT Problems (1) Acute renal injury Status: Acute Problem Text: most probably prerenal ivf NS 125 ml/hr will f/u repeat labs (2) Leucocytosis Status: Acute Problem Text: most probably reactive and related to hemoconcentration due to dehydration. no sign and symptom suggestive of acute infection will f/u repeat lab (3) Nausea & vomiting Status: Acute Problem Text: might be related to suspected viral gastritis or related to marijuana abuse iv zofran prn (4) GERD (gastroesophageal reflux disease) Status: Chronic Problem Text: will start on PO pantoprazole (5) Nicotine dependence Status: Chronic Problem Text: pt was counselled about smoking cessation (6) Marijuana abuse Status: Chronic Problem Text: pt was counselled about marijuana abuse (7) Dehydration Status: Acute Problem Text: ivf NS Plan / VTE VTE Prophylaxis Ordered?: No VTE Exclusion Mechanical Proph: Low Risk for VTE DIANNA CANALES MD Jul 09, 2018 04:01
[2018-07-09] MEDS: ONDANSETRON 4MG/2ML VIAL (J2405) IV PRN ×3 (05:59→21:47)
[2018-07-09 06:10] LABS: MEAN CORPUSCULAR HGB CONC 35.1 g/dl (32.0-36.5); MEAN CORPUSCULAR VOLUME 88.1 fl (80.0-96.0); WHITE BLOOD COUNT 16.4 10^3/uL (4.0-10.0)
[2018-07-09 06:12] LABS: PLATELET COUNT, AUTOMATED 281 10^3/uL (150-450)
[2018-07-09 06:31] LABS: ALBUMIN 3.1 GM/DL (3.2-5.2); ALT/SGPT 17 U/L (12-78); BLOOD UREA NITROGEN 23 MG/DL (7-18); CALCIUM LEVEL 7.8 MG/DL (8.5-10.1); CARBON DIOXIDE LEVEL 24 MEQ/L (21-32); CHLORIDE LEVEL 110 MEQ/L (98-107); CREATININE FOR GFR 1.27 MG/DL (0.70-1.30); GLOMERULAR FILTRATION RATE > 60.0 (>60); GLUCOSE, FASTING 122 MG/DL (70-100); POTASSIUM SERUM 3.5 MEQ/L (3.5-5.1); SODIUM LEVEL 139 MEQ/L (136-145); TOTAL PROTEIN 6.2 GM/DL (6.4-8.2)
[2018-07-09] MEDS: PANTOPRAZOLE 40MG TAB (PROTONIX) PO SCH (08:31)
[2018-07-09] MEDS: METOCLOPRAMIDE INJ 10MG/2ML VIAL (J2765) IV PRN ×2 (11:48→18:05)
[2018-07-09 15:10] VITALS: BP 140/80
--- NOTE | 2018-07-09 15:15 | IPN ---
DATE: 07/09/2018 SUBJECTIVE: Patient seen and examined in the room today. Patient stated he started having urine output. Still has nausea. Zofran is not working for him. He would like to try the Reglan. Patient had a similar episode in the past. Patient cannot remember whether he had a recent sick contact. The only thing he could remember was he has had no urinary output for 2 days prior to the admission, and he is concerned about his kidney function. All the objective testing results were discussed with the patient. OBJECTIVE: VITAL SIGNS: Temperature is 97.9, pulse 58, respirations 20, blood pressure 112/69, pulse oximetry 97% in room air. GENERAL: No sign of acute distress. Alert and oriented times three. HEENT: Normocephalic, atraumatic. Extraocular motor grossly intact. CARDIOVASCULAR: Positive S1, S2, regular rate. LUNGS: Clear to auscultation bilaterally. ABDOMEN: Soft, nontender, nondistended. Bowel sounds present. Postsurgical keenan in the upper abdomen. Patient had a history of hiatal hernia repair. EXTREMITIES: No edema. LABORATORY DATA: WBC is 16.4, hemoglobin 13, hematocrit is 37, platelet count is 281. Sodium is 139, potassium 3.5, chloride 110, carbon dioxide 24, BUN 23, creatinine 1.27, GFR is greater than 60, fasting glucose 122, calcium 7.8. Total bilirubin is 1, AST 10, ALT 17, alkaline phosphatase 64, total protein 3.2, albumin 3.1. ASSESSMENT AND PLAN: 1. Acute kidney injury, most likely secondary to prerenal azotemia from dehydration. On admission, patient had a creatinine of 2.3 with a GFR of 35.3. Patient started on resuscitation since admission. This morning creatinine is 1.27 with a GFR greater than 60. Patient had no urine production 2 days prior to admission. Patient starting to be able to have urinary output this morning. Still has some nausea and intermittent vomiting, controlled with Zofran. Patient may have viral gastroenteritis. 2. Leukocytosis. Based on the history, patient may have gastroenteritis. Continue conservative medical management. Patient is not on any antibiotics. With conservative medical management, WBC has started to improve. Patient does not have any fevers or chills. 3. History of marijuana use. 4. History of polysubstance abuse. Patient has history of intravenous (IV) drug use. 5. History of suicidal attempt in 2011. 6. History of asthma. No sign of exacerbation at this moment. 7. Seasonal allergies, stable. 8. Deep vein thrombosis (DVT) prophylaxis, on thromboembolic deterrent (ZACK) stockings. MTDD
[2018-07-09 22:00] VITALS: BP 148/86
[2018-07-10] MEDS: METOCLOPRAMIDE INJ 10MG/2ML VIAL (J2765) IV PRN ×3 (00:42→15:40)
[2018-07-10] MEDS: NS 1,000 ML IV SCH ×3 (04:14→18:52)
[2018-07-10] MEDS: ONDANSETRON 4MG/2ML VIAL (J2405) IV PRN ×3 (04:14→18:53)
[2018-07-10 06:00] VITALS: BP 137/86
[2018-07-10 07:02] LABS: HEMATOCRIT 38.3 % (42.0-52.0); HEMOGLOBIN 13.3 g/dl (13.5-17.5); MEAN CORPUSCULAR HEMOGLOBIN 30.4 pg (27.0-33.0); MEAN CORPUSCULAR HGB CONC 34.7 g/dl (32.0-36.5); MEAN CORPUSCULAR VOLUME 87.6 fl (80.0-96.0); PLATELET COUNT, AUTOMATED 290 10^3/uL (150-450); RED BLOOD COUNT 4.37 10^6/uL (4.30-6.10); WHITE BLOOD COUNT 13.8 10^3/uL (4.0-10.0)
[2018-07-10 07:26] LABS: ALBUMIN 3.7 GM/DL (3.2-5.2); ALT/SGPT 17 U/L (12-78); BILIRUBIN,TOTAL 2.1 MG/DL (0.2-1.0); BLOOD UREA NITROGEN 15 MG/DL (7-18); CALCIUM LEVEL 8.4 MG/DL (8.5-10.1); CARBON DIOXIDE LEVEL 26 MEQ/L (21-32); CHLORIDE LEVEL 109 MEQ/L (98-107); CREATININE FOR GFR 0.75 MG/DL (0.70-1.30); GLOMERULAR FILTRATION RATE > 60.0 (>60); GLUCOSE, FASTING 108 MG/DL (70-100); POTASSIUM SERUM 3.4 MEQ/L (3.5-5.1); SODIUM LEVEL 141 MEQ/L (136-145); TOTAL PROTEIN 6.5 GM/DL (6.4-8.2)
[2018-07-10] MEDS ORDERED: KCL 10MEQ/100ML SWI (KRUN) 10 MEQ in APPROPRIATE DILUENT 1 EA IV ONE (09:00)
[2018-07-10] MEDS ORDERED: POTASSIUM CHLORIDE 10 MEQ SR TABLET PO ONE (09:00)
[2018-07-10] MEDS ORDERED: ISOVUE-370 76% 100ML VIAL (Q9967) As Ordered ONE (09:22)
--- NOTE | 2018-07-10 10:15 | REP ---
CT ABDOMEN AND PELVIS WITH CONTRAST: HISTORY: Nausea. CONTRAST: Isovue 370, 100 mL. COMPARISON: 07/09/2018 The liver, gallbladder, pancreas, spleen, adrenal glands and kidneys are normal in appearance. There is no mass, adenopathy or free fluid. The visualized lungs are clear. Calcifications are present in the prostate gland. The urinary bladder is normal in appearance. There is no fracture or subluxation. IMPRESSION: Normal CT abdomen and pelvis. Electronically Signed by Juan Daniel Ramirez MD 07/10/2018 10:25 A
[2018-07-10] MEDS: PANTOPRAZOLE 40MG TAB (PROTONIX) PO SCH (10:28)
[2018-07-10 14:00] VITALS: BP 141/88
--- NOTE | 2018-07-10 14:30 | IPNPDOC ---
Text Note Date of Service The patient was seen on 07/10/18. NOTE SUBJECTIVE: Patient is seen and examined in the room today. Patient is complaining about severe nausea and vomiting. He also complains about midupper abdominal discomfort. No fever or chill. OBJECTIVE: VITAL SIGNS: Listed below. GENERAL: Mild acute distress. Alert and oriented times three. HEENT: Normocephalic, atraumatic. Extraocular motor grossly intact. CARDIOVASCULAR: Positive S1, S2, regular rate. LUNGS: Clear to auscultation bilaterally. ABDOMEN: Soft, nontender, nondistended. Bowel sounds present. EXTREMITIES: No edema. LABORATORY DATA: Listed below. ASSESSMENT AND PLAN: #. Acute kidney injury - most likely secondary to prerenal azotemia from dehydration. Renal function improved after fluid support. On reglan and zofran for nausea and vomiting. Patient may have viral gastroenteritis. #. Leukocytosis. - Based on the history, patient may have gastroenteritis. Continue conservative medical management. Patient is not on any antibiotics. WBC continue to improve. Patient does not have any fevers or chills. #. History of marijuana use. #. History of polysubstance abuse. - Patient has history of intravenous (IV) heroin drug use per record. - Follow up with urine toxicology #. History of suicidal attempt in 2011. #. History of asthma. No sign of exacerbation at this moment. #. Seasonal allergies, stable. #. Deep vein thrombosis (DVT) prophylaxis - On thromboembolic deterrent (ZACK) stockings. VS,Fishbone, I+O VS, Fishbone, I+O Laboratory Tests 07/10/18 06:37 Red Blood Count 4.37, Mean Corpuscular Volume 87.6, Mean Corpuscular Hemoglobin 30.4, Mean Corpuscular Hemoglobin Concent 34.7, Red Cell Distribution Width 11.8, Calcium Level 8.4 L, Aspartate Amino Transf (AST/SGOT) 15, Alanine A minotransferase (ALT/SGPT) 17, Alkaline Phosphatase 66, Total Bilirubin 2.1 #H, Total Protein 6.5, Albumin 3.7 Vital Signs Date Time Temp Pulse Resp B/P (MAP) Pulse Ox O2 Delivery O2 Flow Rate FiO2 07/10/18 06:00 98.3 56 18 137/86 (103) 97 07/09/18 03:32 Room Air I&O- Last 24 Hours up to 6 AM 07/10/18 06:00 Intake Total 4180 ml Output Total 350 ml Balance 3830 ml SHAWN HORNE DO Jul 10, 2018 14:30
[2018-07-10] MEDS: IBUPROFEN 600 MG TAB PO PRN (15:40)
[2018-07-10 16:16] LABS: AMPHETAMINES LEVEL URINE NEGATIVE (NEGATIVE); BARBITURATES URINE NEGATIVE (NEGATIVE); BENZODIAZEPINES URINE NEGATIVE (NEGATIVE); CANNABINOIDS URINE POSITIVE (NEGATIVE); COCAINE METABOLITE URINE NEGATIVE (NEGATIVE); METHADONE URINE NEGATIVE (NEGATIVE); OPIATES URINE NEGATIVE (NEGATIVE); PHENCYCLIDINE URINE NEGATIVE (NEGATIVE)
[2018-07-10 16:17] LABS: C REACTIVE PROTEIN QUANTITATIV < 0.30 MG/DL (0.00-0.30)
[2018-07-10 16:31] LABS: ERYTHROCYTE SEDIMENTATION RATE 2 mm/hr (0-15)
[2018-07-10 22:00] VITALS: BP 106/66
[2018-07-11] MEDS: METOCLOPRAMIDE INJ 10MG/2ML VIAL (J2765) IV PRN ×3 (01:21→19:45)
[2018-07-11 06:00] VITALS: BP 148/87
[2018-07-11 06:08] LABS: HEMATOCRIT 37.6 % (42.0-52.0); MEAN CORPUSCULAR HEMOGLOBIN 30.1 pg (27.0-33.0); MEAN CORPUSCULAR HGB CONC 34.6 g/dl (32.0-36.5); PLATELET COUNT, AUTOMATED 277 10^3/uL (150-450); RED BLOOD COUNT 4.32 10^6/uL (4.30-6.10)
[2018-07-11 06:32] LABS: ALBUMIN 3.5 GM/DL (3.2-5.2); ALT/SGPT 25 U/L (12-78); BILIRUBIN,TOTAL 2.1 MG/DL (0.2-1.0); BLOOD UREA NITROGEN 10 MG/DL (7-18); CALCIUM LEVEL 8.4 MG/DL (8.5-10.1); CARBON DIOXIDE LEVEL 28 MEQ/L (21-32); CHLORIDE LEVEL 107 MEQ/L (98-107); CREATININE FOR GFR 0.75 MG/DL (0.70-1.30); GLOMERULAR FILTRATION RATE > 60.0 (>60); GLUCOSE, FASTING 110 MG/DL (70-100); POTASSIUM SERUM 3.7 MEQ/L (3.5-5.1); SODIUM LEVEL 139 MEQ/L (136-145); TOTAL PROTEIN 6.5 GM/DL (6.4-8.2)
[2018-07-11] MEDS: PANTOPRAZOLE 40MG TAB (PROTONIX) PO SCH (07:56)
[2018-07-11] MEDS: ONDANSETRON 4MG/2ML VIAL (J2405) IV PRN ×3 (08:01→23:32)
[2018-07-11 14:00] VITALS: BP 133/85
--- NOTE | 2018-07-11 16:45 | IPNPDOC ---
Text Note Date of Service The patient was seen on 07/11/18. NOTE SUBJECTIVE: Patient is seen and examined in the room today. Patient continues having nausea and vomiting. He also complains about midupper abdominal discomfort. No fever or chill. OBJECTIVE: VITAL SIGNS: Listed below. GENERAL: Mild acute distress. Alert and oriented times three. HEENT: Normocephalic, atraumatic. Extraocular motor grossly intact. CARDIOVASCULAR: Positive S1, S2, regular rate. LUNGS: Clear to auscultation bilaterally. ABDOMEN: Soft, nontender, nondistended. Bowel sounds present. EXTREMITIES: No edema. LABORATORY DATA: Listed below. ASSESSMENT AND PLAN: #. Acute kidney injury - most likely secondary to prerenal azotemia from dehydration. - S/P IV support. Renal function improved. On reglan and zofran for nausea and vomiting. Patient may have viral gastroenteritis. #. Leukocytosis. - Based on the history, patient may have viral gastroenteritis. Continue conservative medical management. Patient is not on any antibiotics. WBC continue to improve. Patient does not have any fevers or chills. #. History of marijuana use. - Urine toxicology is positive for Marijuana. #. History of polysubstance abuse. - Patient has history of intravenous (IV) heroin drug use per record. - Urine toxicology is positive for Marijuana. #. History of suicidal attempt in 2011. #. History of asthma. No sign of exacerbation at this moment. #. Seasonal allergies, stable. #. Deep vein thrombosis (DVT) prophylaxis - On thromboembolic deterrent (ZACK) stockings. VS,Fishbone, I+O VS, Fishbone, I+O Laboratory Tests 07/11/18 05:44 Red Blood Count 4.32, Mean Corpuscular Volume 87.0, Mean Corpuscular Hemoglobin 30.1, Mean Corpuscular Hemoglobin Concent 34.6, Red Cell Distribution Width 11.5, Calcium Level 8.4 L, Aspartate Amino Transf (AST/SGOT) 19, Alanine Aminotransferase (ALT/SGPT) 25, Alkaline Phosphatase 66, Total Bilirubin 2.1 H, Total Protein 6.5, Albumin 3.5 Vital Signs Date Time Temp Pulse Resp B/P (MAP) Pulse Ox O2 Delivery O2 Flow Rate FiO2 07/11/18 14:00 98.4 62 20 133/85 (101) 99 07/09/18 03:32 Room Air I&O- Last 24 Hours up to 6 AM 07/11/18 06:00 Intake Total 540 ml Output Total 400 ml Balance 140 ml SHAWN HORNE DO Jul 11, 2018 16:45
[2018-07-11] MEDS: IBUPROFEN 600 MG TAB PO PRN ×2 (16:46→23:36)
[2018-07-11 22:00] VITALS: BP 108/59
[2018-07-12] MEDS: METOCLOPRAMIDE INJ 10MG/2ML VIAL (J2765) IV PRN ×2 (04:27→10:51)
[2018-07-12 05:54] LABS: HEMATOCRIT 40.5 % (42.0-52.0); HEMOGLOBIN 14.5 g/dl (13.5-17.5); MEAN CORPUSCULAR HEMOGLOBIN 30.4 pg (27.0-33.0); MEAN CORPUSCULAR HGB CONC 35.8 g/dl (32.0-36.5); MEAN CORPUSCULAR VOLUME 84.9 fl (80.0-96.0); PLATELET COUNT, AUTOMATED 324 10^3/uL (150-450); RED BLOOD COUNT 4.77 10^6/uL (4.30-6.10); WHITE BLOOD COUNT 11.7 10^3/uL (4.0-10.0)
[2018-07-12 06:00] VITALS: BP 135/66
[2018-07-12 06:29] LABS: ALBUMIN 3.8 GM/DL (3.2-5.2); ALT/SGPT 22 U/L (12-78); BILIRUBIN,TOTAL 2.3 MG/DL (0.2-1.0); BLOOD UREA NITROGEN 13 MG/DL (7-18); CALCIUM LEVEL 8.6 MG/DL (8.5-10.1); CARBON DIOXIDE LEVEL 29 MEQ/L (21-32); CHLORIDE LEVEL 103 MEQ/L (98-107); CREATININE FOR GFR 0.86 MG/DL (0.70-1.30); GLOMERULAR FILTRATION RATE > 60.0 (>60); GLUCOSE, FASTING 111 MG/DL (70-100); POTASSIUM SERUM 3.4 MEQ/L (3.5-5.1); SODIUM LEVEL 137 MEQ/L (136-145); TOTAL PROTEIN 7.3 GM/DL (6.4-8.2)
[2018-07-12] MEDS: PANTOPRAZOLE 40MG TAB (PROTONIX) PO SCH (07:54)
[2018-07-12] MEDS: ONDANSETRON 4MG/2ML VIAL (J2405) IV PRN ×2 (07:54→19:10)
[2018-07-12] MEDS: IBUPROFEN 600 MG TAB PO PRN ×2 (07:54→19:10)
[2018-07-12] MEDS ORDERED: POTASSIUM CHLORIDE 10 MEQ SR TABLET PO ONE (08:45)
--- NOTE | 2018-07-12 10:20 | IPNPDOC ---
Text Note Date of Service The patient was seen on 07/12/18. NOTE SUBJECTIVE: Patient seen and examined at bedside. Still complains of nausea, denies vomiting, describes some generalized abdominal pain - no clear description. OBJECTIVE: VITAL SIGNS: Listed below. GENERAL: NAD, lying comfortably in bed HEENT: NC/AT CARDIOVASCULAR: +S1S2, RRR LUNGS: CTA B/L ABDOMEN: soft, NT, ND, +BS EXTREMITIES: No edema. LABORATORY DATA: Listed below. ASSESSMENT AND PLAN: # BHARAT - resolved - most likely secondary to prerenal azotemia from dehydration. - S/P IV support. Renal function improved. On reglan and zofran for nausea and vomiting. Patient may have viral gastroenteritis. # Leukocytosis - marginally worse from yesterday - continue to follow - Based on the history, patient may have viral gastroenteritis. Continue conservative medical management. Patient is not on any antibiotics. Patient does not have any fevers or chills. #hyperbilirubinemia - worsening - check liver US # History of marijuana use. - Urine toxicology is positive for Marijuana. # History of polysubstance abuse. - Patient has history of intravenous (IV) heroin drug use per record. - Urine toxicology is positive for Marijuana. # History of suicidal attempt in 2011. # History of asthma. No sign of exacerbation at this time # Seasonal allergies, stable. #DVT prophylaxis - On thromboembolic deterrent (ZACK) stockings. Dispo: US liver pending, anticipate d/c within 24 hours VS,Fishbone, I+O VS, Fishbone, I+O Laboratory Tests 07/12/18 05:37 Red Blood Count 4.77, Mean Corpuscular Volume 84.9, Mean Corpuscular Hemoglobin 30.4, Mean Corpuscular Hemoglobin Concent 35.8, Red Cell Distribution Width 11.2 L, Calcium Level 8.6, Aspartate Amino Transf (AST/SGOT) 12, Alanine Aminotransferase (ALT/SGPT) 22, Alkaline Phosphatase 74, Total Bilirubin 2.3 H, Total Protein 7.3, Albumin 3.8 Vital Signs Date Time Temp Pulse Resp B/P (MAP) Pulse Ox O2 Delivery O2 Flow Rate FiO2 07/12/18 06:00 98.1 60 18 135/66 (89) 99 07/09/18 03:32 Room Air I&O- Last 24 Hours up to 6 AM 07/12/18 06:00 Intake Total 1400 ml Output Total 475 ml Balance 925 ml DEONNA DELEON MD Jul 12, 2018 10:19
[2018-07-12 10:42] LABS: BILIRUBIN,DIRECT 0.4 MG/DL (0.0-0.2)
[2018-07-12 14:00] VITALS: BP 103/66
[2018-07-12 22:00] VITALS: BP 125/62
--- NOTE | 2018-07-13 04:58 | REP ---
Clinical: Hyperbilirubinemia. Technique: Real time hayden scale ultrasound examination using curved array transducer. Findings: Liver and pancreas are normal in contour, size, and echogenicity without focal hepatic or pancreatic lesion identified. The gallbladder demonstrates small mobile gallstones and sludge without wall thickening or pericholecystic fluid. No sonographic Shell's sign was elicited. No biliary ductal dilatation is appreciated and the common bile duct measures 2.4 mm diameter. The right kidney is normal in reniform shape without hydronephrosis and measures 12.8 x 5.3 x 4.5 cm. No ascites. Impression: Cholelithiasis. Electronically Signed by Jared Puentes MD 07/13/2018 04:50 A
[2018-07-13 06:00] VITALS: BP 113/74
[2018-07-13 06:09] LABS: BASO # 0.1 10^3/uL (0.0-0.2); BASO % 0.4 % (0.0-1.0); EOS # 0.5 10^3/uL (0.0-0.50); EOS % 4.2 % (0.0-3.0); HEMATOCRIT 37.6 % (42.0-52.0); HEMOGLOBIN 13.3 g/dl (13.5-17.5); LYMPH # 3.3 10^3/uL (1.5-4.5); LYMPH % 28.7 % (24.0-44.0); MEAN CORPUSCULAR HEMOGLOBIN 30.4 pg (27.0-33.0); MEAN CORPUSCULAR HGB CONC 35.4 g/dl (32.0-36.5); MONO # 1.3 10^3/uL (0.0-0.8); NEUTROPHILS # 6.3 10^3/uL (1.8-7.7); NEUTROPHILS % 55.3 % (36.0-66.0); PLATELET COUNT, AUTOMATED 284 10^3/uL (150-450); RED BLOOD COUNT 4.37 10^6/uL (4.30-6.10); WHITE BLOOD COUNT 11.4 10^3/uL (4.0-10.0)
[2018-07-13 06:27] LABS: ALBUMIN 3.3 GM/DL (3.2-5.2); ALT/SGPT 16 U/L (12-78); BILIRUBIN,TOTAL 2.1 MG/DL (0.2-1.0); BLOOD UREA NITROGEN 17 MG/DL (7-18); CARBON DIOXIDE LEVEL 29 MEQ/L (21-32); CHLORIDE LEVEL 105 MEQ/L (98-107); CREATININE FOR GFR 0.82 MG/DL (0.70-1.30); GLOMERULAR FILTRATION RATE > 60.0 (>60); GLUCOSE, FASTING 90 MG/DL (70-100); POTASSIUM SERUM 3.7 MEQ/L (3.5-5.1); SODIUM LEVEL 139 MEQ/L (136-145); TOTAL PROTEIN 6.3 GM/DL (6.4-8.2)
[2018-07-13] MEDS: PANTOPRAZOLE 40MG TAB (PROTONIX) PO SCH (07:44)
[2018-07-13] MEDS ORDERED: ONDA4TAB5 PO (10:39)
[2018-07-13] MEDS ORDERED: PANT40TA3 PO (10:39)
[2018-07-13] MEDS ORDERED: ONDANSETRON 4 MG ORAL DISINTEGRATING TAB (Q0162 PER 1MG) PO ONE (11:15)
--- NOTE | 2018-07-13 11:46 | IPNPDOC ---
Text Note Date of Service The patient was seen on 07/13/18. NOTE SUBJECTIVE: Patient seen and examined at bedside. Still complains of nausea, d enies vomiting, describes some generalized abdominal pain - no clear description. OBJECTIVE: VITAL SIGNS: Listed below. GENERAL: NAD, lying comfortably in bed HEENT: NC/AT CARDIOVASCULAR: +S1S2, RRR LUNGS: CTA B/L ABDOMEN: soft, NT, ND, +BS EXTREMITIES: No edema. LABORATORY DATA: Listed below. ASSESSMENT AND PLAN: # BHARAT - resolved - most likely secondary to prerenal azotemia from dehydration. - S/P IV support. Renal function improved. On reglan and zofran for nausea and vomiting. Patient may have viral gastroenteritis. #recurrent nausea/vomiting - EGD for tomorrow - GI c/s - NPO - possible secondary to cannabis # Leukocytosis - marginally improved from yesterday - continue to follow - Based on the history, patient may have viral gastroenteritis. Continue conservative medical management. Patient is not on any antibiotics. Patient does not have any fevers or chills. #hyperbilirubinemia - improved - liver US no acute pathology # History of marijuana use. - Urine toxicology is positive for Marijuana. # History of polysubstance abuse. - Patient has history of intravenous (IV) heroin drug use per record. - Urine toxicology is positive for Marijuana. # History of suicidal attempt in 2011. # History of asthma. No sign of exacerbation at this time # Seasonal allergies, stable. #DVT prophylaxis - On thromboembolic deterrent (ZACK) stockings. Dispo: NPO, EGD for tomorrow, GI c/s VS,Fishbone, I+O VS, Fishbone, I+O Laboratory Tests 07/13/18 05:46 Red Blood Count 4.37, Mean Corpuscular Volume 86.0, Mean Corpuscular Hemoglobin 30.4, Mean Corpuscular Hemoglobin Concent 35.4, Red Cell Distribution Width 11.3 L, Neutrophils (%) (Auto) 55.3, Lymphocytes (%) (Auto) 28.7, Monocytes (%) (Auto) 11.0 H, Eosinophils (%) (Auto) 4.2 H, Basophils (%) (Auto) 0.4, Neutrophils # (Auto) 6.3, Lymphocytes # (Auto) 3.3, Monocytes # (Auto) 1.3 H, Eosinophils # (Auto) 0.5, Basophils # (Auto) 0.1, Calcium Level 8.0 L, Aspartate Amino Transf (AST/SGOT) 10, Alanine Aminotransferase (ALT/SGPT) 16, Alkaline Phosphatase 67, Total Bilirubin 2.1 H, Total Protein 6.3 L, Albumin 3.3 Vital Signs Date Time Temp Pulse Resp B/P (MAP) Pulse Ox O2 Delivery O2 Flow Rate FiO2 07/13/18 06:00 98.3 56 18 113/74 (87) 100 07/09/18 03:32 Room Air I&O- Last 24 Hours up to 6 AM 07/13/18 06:00 Intake Total 660 ml Output Total 775 ml Balance -115 ml DEONNA DELEON MD July 13, 2018 11:46
[2018-07-13] MEDS: METOCLOPRAMIDE INJ 10MG/2ML VIAL (J2765) IV PRN ×2 (12:22→19:47)
[2018-07-13] MEDS: ONDANSETRON 4MG/2ML VIAL (J2405) IV PRN (13:59)
[2018-07-13 14:00] VITALS: BP 133/74
[2018-07-13] MEDS: NS 1,000 ML IV SCH (15:15)
[2018-07-13 22:00] VITALS: BP 121/70
[2018-07-13] MEDS: IBUPROFEN 600 MG TAB PO PRN (22:34)
[2018-07-14] MEDS: NS 1,000 ML IV SCH ×3 (03:14→19:44)
[2018-07-14 06:00] VITALS: BP 118/67
[2018-07-14] MEDS: PANTOPRAZOLE 40MG TAB (PROTONIX) PO SCH (09:03)
--- NOTE | 2018-07-14 09:32 | CR ---
DATE OF CONSULTATION: 07/13/2018 HISTORY OF PRESENT ILLNESS: This is a 32-year white male who has been admitted to [facility] for evaluation of intermittent bouts of nausea and vomiting causing dehydration. The patient apparently has had two previous episodes of nausea and vomiting and of unclear etiology. Abdominal CT scans have been performed in the past without any clinical findings seen. The patient's symptoms started suddenly and he has had symptoms for 3-5 days. He comes to the emergency room (ER) and requires hospitalization for intravenous rehydration. He is being seen by gastrointestinal (GI) for consideration for endoscopy for further evaluation. ALLERGIES: No known allergies. PAST MEDICAL HISTORY: 1. As above. 2. Reflux. 3. Frequent marijuana use. 4. The patient denies illicit intravenous (IV) drug abuse. 5. History of suicides which apparently situational after the of his . PAST SURGICAL HISTORY: 1. Previous tonsillectomy. 2. Left inguinal hernia repair by Dr. Westbrook. FAMILY HISTORY: Noncontributory. SOCIAL HISTORY: The patient smokes, alcohol occasionally The patient does use marijuana. REVIEW OF SYSTEMS: Noncontributory to the above problem. PHYSICAL EXAMINATION: GENERAL: He has a well-developed, well-nourished white male in no obvious acute distress. Appears stated age. CHEST: Clear to auscultation percussion. CARDIOVASCULAR EXAM: Regular rhythm without murmurs or gallops. Normal physiological split S1, and S2. ABDOMEN: Soft, nontender. No masses, guarding, rebound, hepatosplenomegaly. Bowel sounds positive. LABORATORY STUDIES: On admission, CBC with a white count of 21,800, hemoglobin 17.9, hematocrit 50, platelets 400,00. Chemistry on admission showed a BUN 15, creatinine 0.75, renal functions normal. The patient's liver functions were normal. The bilirubin is elevated probably due to a nonspecific enzyme deficiency of his liver. Toxicology studies were ordered on admission which were negative except for cannabis. IMAGING STUDIES: The patient had imaging studies including two abdominal CT scans, one on July 09 and on July 10, both were essentially normal. Ultrasound of the liver and right upper quadrant apparently suggest the patient has small mobile gall stones and sludge without wall thickening of the gallbladder. No Shell's sign was appreciated. REPEAT LABORATORY STUDIES OF THE CBC ON 07/13/2018: White count has come down to 11,400, hemoglobin 13.3 and hematocrit 37.6. ANALYSIS: Nausea, vomiting of unknown etiology. I will set the patient up for an upper endoscopy for evaluation of his symptoms. With the history of anxiety and depression in the past and suicidal attempt in the past I am concerned that the patient has probable cyclic vomiting syndrome. He has had previous bouts of this in 2016 where he came to the emergency room for similar issues and at that time his labs again were normal, liver functions were normal. The patient has had fairly frequent hospitalizations for this problem with dehydration. He was hospitalized again in [address] and 12/09/2017 again showed at that time no acute pathology seen. PLAN: 1. Upper endoscopy. 2. The patient may need a psychiatric consultation and put on antidepressants to control these bouts of vomiting. I do not think that the patient's finding of gall stones are a cause for his symptoms; however, would obtain Dr. Westbrook's opinion on this but without wall thickening I doubt this is the source of his bouts of vomiting.
[2018-07-14 10:32] LABS: BASO % 0.4 % (0.0-1.0); EOS # 0.2 10^3/uL (0.0-0.50); EOS % 1.8 % (0.0-3.0); HEMATOCRIT 36.8 % (42.0-52.0); HEMOGLOBIN 13.1 g/dl (13.5-17.5); LYMPH # 2.4 10^3/uL (1.5-4.5); LYMPH % 23.2 % (24.0-44.0); MEAN CORPUSCULAR HEMOGLOBIN 30.8 pg (27.0-33.0); MEAN CORPUSCULAR HGB CONC 35.6 g/dl (32.0-36.5); MEAN CORPUSCULAR VOLUME 86.4 fl (80.0-96.0); MONO % 10.1 % (0.0-5.0); NEUTROPHILS # 6.5 10^3/uL (1.8-7.7); NEUTROPHILS % 64.1 % (36.0-66.0); PLATELET COUNT, AUTOMATED 293 10^3/uL (150-450); RED BLOOD COUNT 4.26 10^6/uL (4.30-6.10); WHITE BLOOD COUNT 10.2 10^3/uL (4.0-10.0)
[2018-07-14 11:00] LABS: ALBUMIN 3.6 GM/DL (3.2-5.2); ALT/SGPT 16 U/L (12-78); BILIRUBIN,DIRECT 0.3 MG/DL (0.0-0.2); BILIRUBIN,TOTAL 2.1 MG/DL (0.2-1.0); BLOOD UREA NITROGEN 13 MG/DL (7-18); CALCIUM LEVEL 8.3 MG/DL (8.5-10.1); CARBON DIOXIDE LEVEL 27 MEQ/L (21-32); CHLORIDE LEVEL 103 MEQ/L (98-107); CREATININE FOR GFR 0.79 MG/DL (0.70-1.30); GLOMERULAR FILTRATION RATE > 60.0 (>60); GLUCOSE, FASTING 95 MG/DL (70-100); POTASSIUM SERUM 3.2 MEQ/L (3.5-5.1); SODIUM LEVEL 136 MEQ/L (136-145); TOTAL PROTEIN 6.6 GM/DL (6.4-8.2)
[2018-07-14] MEDS ORDERED: POTASSIUM CHLORIDE 10 MEQ SR TABLET PO ONE (13:30)
--- NOTE | 2018-07-14 13:32 | IPNPDOC ---
Text Note Date of Service The patient was seen on 07/14/18. NOTE SUBJECTIVE: Patient seen and examined at bedside. Still complains of nausea, d enies vomiting, describes some generalized abdominal pain - no clear description. OBJECTIVE: VITAL SIGNS: Listed below. GENERAL: NAD, lying comfortably in bed HEENT: NC/AT CARDIOVASCULAR: +S1S2, RRR LUNGS: CTA B/L ABDOMEN: soft, NT, ND, +BS EXTREMITIES: No edema. LABORATORY DATA: Listed below. ASSESSMENT AND PLAN: # BHARAT - resolved - most likely secondary to prerenal azotemia from dehydration. #recurrent nausea/vomiting - EGD today - GI c/s - NPO - possible secondary to cannabis abuse # Leukocytosis - improving - Based on the history, patient may have viral gastroenteritis - continue conservative medical management #hyperbilirubinemia - improved - liver US no acute pathology # History of marijuana use. - Urine toxicology is positive for Marijuana. # History of polysubstance abuse. - Patient has history of intravenous (IV) heroin drug use per record. - Urine toxicology is positive for Marijuana. # History of suicidal attempt in 2011. # History of asthma. No sign of exacerbation at this time # Seasonal allergies, stable. #DVT prophylaxis - On thromboembolic deterrent (ZACK) stockings. Dispo: NPO, EGD today, GI f/u A-FIB/CHADSVASC A-FIB History Current/History of A-Fib/PAF?: No VS,Fishbone, I+O VS, Fishbone, I+O Laboratory Tests 07/14/18 10:11 Red Blood Count 4.26 L, Mean Corpuscular Volume 86.4, Mean Corpuscular Hemoglobin 30.8, Mean Corpuscular Hemoglobin Concent 35.6, Red Cell Distribution Width 11.5, Neutrophils (%) (Auto) 64.1, Lymphocytes (%) (Auto) 23.2 L, Monocytes (%) (Auto) 10.1 H, Eosinophils (%) (Auto) 1.8, Basophils (%) (Auto) 0.4, Neutrophils # (Auto) 6.5, Lymphocytes # (Auto) 2.4, Monocytes # (Auto) 1.0 H, Eosinophils # (Auto) 0.2, Basophils # (Auto) 0.0 Vital Signs Date Time Temp Pulse Resp B/P (MAP) Pulse Ox O2 Delivery O2 Flow Rate FiO2 5/2/19 06:00 98.7 59 18 118/67 (84) 99 07/09/18 03:32 Room Air I&O- Last 24 Hours up to 6 AM 07/14/18 06:00 Intake Total 2875 ml Output Total 600 ml Balance 2275 ml DEONNA DELEON MD July 14, 2018 13:31
[2018-07-14 13:41] LABS: MAGNESIUM LEVEL 1.9 MG/DL (1.8-2.4)
[2018-07-14 14:00] VITALS: BP 118/80
[2018-07-14] MEDS ORDERED: PROPOFOL 200 MG/20 ML VIAL As Ordered ONE (18:10)
[2018-07-14] MEDS ORDERED: LIDOCAINE 2% INJ 100 MG/5 ML SDV (FOR ANES.) As Ordered ONE (18:10)
[2018-07-14] MEDS ORDERED: fentaNYL 100 MCG/2 ML INJECTION (J3010) As Ordered ONE (18:10)
[2018-07-14] MEDS ORDERED: LR 1,000 ML IV SCH (19:00)
[2018-07-14] MEDS ORDERED: ONDANSETRON 4MG/2ML VIAL (J2405) IV PRN (19:00)
--- NOTE | 2018-07-14 19:15 | ROOR ---
Patient Name: Srinivasa Valencia Procedure Date: 07/14/2018 6:03 PM Date of : 1985 Age: 32 Gender: Male Note Status: Finalized Procedure: Upper GI endoscopy Indications: Nausea with vomiting Providers: Trever Billingsley MD Referring MD: 1. No Referring Physician 1. No Referring Physician, Admin. Requesting Provider: Medicines: Monitored Anesthesia Care Complications: No immediate complications. Procedure: Pre-Anesthesia Assessment: - The heart rate, respiratory rate, oxygen saturations, blood pressure, adequacy of pulmonary ventilation, and response to care were monitored throughout the procedure. The Endoscope was introduced through the mouth, and advanced to the second part of duodenum. The upper GI endoscopy was accomplished without difficulty. The patient tolerated the procedure well. Findings: The Z-line was regular and was found 40 cm from the incisors. A small hiatal hernia was present. Localized minimal inflammation characterized by congestion (edema) and erythema was found in the cardia and in the gastric fundus. No other significant abnormalities were identified in a careful examination of the stomach. The exam of the duodenum was otherwise normal. Impression: - Z-line regular, 40 cm from the incisors. - Small hiatal hernia. - Gastritis. - No specimens collected. - The examination was otherwise normal. Recommendation: - Patient has a contact number available for emergencies. The signs and symptoms of potential delayed complications were discussed with the patient. Return to normal activities tomorrow. Written discharge instructions were provided to the patient. - Soft diet. - Return patient to [facility] for ongoing care. - Use Prilosec (omeprazole) 40 mg PO daily. - Refer to a surgeon at appointment to be scheduled. Trever Billingsley MD Trever Billingsley MD 07/14/2018 7:14:41 PM Electronically signed by Trever Billingsley MD Number of Addenda: 0 Note Initiated On: 07/14/2018 6:03 PM Estimated Blood Loss: Estimated blood loss: none.
[2018-07-14 22:00] VITALS: BP 116/52
[2018-07-15] MEDS: ONDANSETRON 4MG/2ML VIAL (J2405) IV PRN ×2 (01:27→09:53)
[2018-07-15] MEDS: NS 1,000 ML IV SCH ×2 (05:38→16:45)
[2018-07-15] MEDS: METOCLOPRAMIDE INJ 10MG/2ML VIAL (J2765) IV PRN (05:38)
[2018-07-15 06:00] VITALS: BP 130/92
[2018-07-15] MEDS: PANTOPRAZOLE 40MG TAB (PROTONIX) PO SCH (09:53)
[2018-07-15] MEDS ORDERED: DICYCLOMINE 10 MG CAP PO PRN (12:15)
--- NOTE | 2018-07-15 12:31 | IPNPDOC ---
Text Note Date of Service The patient was seen on 07/15/18. NOTE SUBJECTIVE: Patient seen and examined at bedside. Still complains of nausea, vomiting, abdominal pain. OBJECTIVE: VITAL SIGNS: Listed below. GENERAL: NAD, lying comfortably in bed HEENT: NC/AT CARDIOVASCULAR: +S1S2, RRR LUNGS: CTA B/L ABDOMEN: soft, NT, ND, +BS EXTREMITIES: No edema. LABORATORY DATA: Listed below. ASSESSMENT AND PLAN: # BHARAT - resolved - most likely secondary to prerenal azotemia from dehydration. #recurrent nausea/vomiting - s/p EGD - GI c/s appreciated - CLD advance as tolerated - possible secondary to cannabis abuse # Leukocytosis - labs pending tomorrow - was improving - Based on the history, patient may have viral gastroenteritis - continue conservative medical management #hyperbilirubinemia - improved - liver US no acute pathology # History of marijuana use. - Urine toxicology is positive for Marijuana. # History of polysubstance abuse. - Patient has history of intravenous (IV) heroin drug use per record. - Urine toxicology is positive for Marijuana. # History of suicidal attempt in 2011. # History of asthma. No sign of exacerbation at this time # Seasonal allergies, stable. #DVT prophylaxis - On thromboembolic deterrent (ZACK) stockings. Dispo: CLD/AAT, bentyl, simethicone, reglan; o/p f/u when tolerating food A-FIB/CHADSVASC A-FIB History Current/History of A-Fib/PAF?: No VS,Fishbone, I+O VS, Fishbone, I+O Vital Signs Date Time Temp Pulse Resp B/P (MAP) Pulse Ox O2 Delivery O2 Flow Rate FiO2 07/15/18 06:00 98.9 67 16 130/92 (105) 99 07/09/18 03:32 Room Air I&O- Last 24 Hours up to 6 AM 07/15/18 06:00 Intake Total 2350 ml Output Total 2150 ml Balance 200 ml DEONNA DELEON MD July 15, 2018 12:31
[2018-07-15] MEDS: IBUPROFEN 600 MG TAB PO PRN (13:37)
[2018-07-15] MEDS: SIMETHICONE 80 MG CHEW TAB PO PRN (13:40)
[2018-07-15] MEDS: METOCLOPRAMIDE 5 MG TAB PO PRN ×2 (13:40→21:11)
[2018-07-15 14:00] VITALS: BP 124/55
[2018-07-15 22:00] VITALS: BP 136/78
[2018-07-16] MEDS: IBUPROFEN 600 MG TAB PO PRN (04:39)
[2018-07-16] MEDS: NS 1,000 ML IV SCH (04:39)
[2018-07-16] MEDS: SIMETHICONE 80 MG CHEW TAB PO PRN (04:41)
[2018-07-16 06:00] VITALS: BP 103/66
[2018-07-16 06:27] LABS: BASO % 0.4 % (0.0-1.0); EOS # 0.2 10^3/uL (0.0-0.50); EOS % 1.9 % (0.0-3.0); HEMATOCRIT 35.2 % (42.0-52.0); HEMOGLOBIN 12.4 g/dl (13.5-17.5); LYMPH # 2.7 10^3/uL (1.5-4.5); LYMPH % 29.1 % (24.0-44.0); MEAN CORPUSCULAR HEMOGLOBIN 30.4 pg (27.0-33.0); MEAN CORPUSCULAR HGB CONC 35.2 g/dl (32.0-36.5); MEAN CORPUSCULAR VOLUME 86.3 fl (80.0-96.0); MONO # 1.1 10^3/uL (0.0-0.8); MONO % 12.5 % (0.0-5.0); NEUTROPHILS # 5.1 10^3/uL (1.8-7.7); NEUTROPHILS % 55.6 % (36.0-66.0); PLATELET COUNT, AUTOMATED 301 10^3/uL (150-450); RED BLOOD COUNT 4.08 10^6/uL (4.30-6.10); WHITE BLOOD COUNT 9.1 10^3/uL (4.0-10.0)
[2018-07-16 06:47] LABS: ALBUMIN 3.3 GM/DL (3.2-5.2); ALT/SGPT 11 U/L (12-78); BILIRUBIN,TOTAL 1.7 MG/DL (0.2-1.0); BLOOD UREA NITROGEN 9 MG/DL (7-18); CALCIUM LEVEL 8.2 MG/DL (8.5-10.1); CARBON DIOXIDE LEVEL 27 MEQ/L (21-32); CHLORIDE LEVEL 107 MEQ/L (98-107); CREATININE FOR GFR 0.79 MG/DL (0.70-1.30); GLOMERULAR FILTRATION RATE > 60.0 (>60); GLUCOSE, FASTING 97 MG/DL (70-100); POTASSIUM SERUM 3.5 MEQ/L (3.5-5.1); SODIUM LEVEL 138 MEQ/L (136-145)
[2018-07-16] MEDS: METOCLOPRAMIDE 5 MG TAB PO PRN (07:50)
[2018-07-16] MEDS: PANTOPRAZOLE 40MG TAB (PROTONIX) PO SCH (07:50)
[2018-07-16] MEDS ORDERED: METO5TAB2 PO ×2 (10:02→11:05)
[2018-07-16] MEDS ORDERED: DICY1CAP8 PO (10:02)
[2018-07-16] MEDS ORDERED: SIME80TA PO (10:02)
[2018-07-16] MEDS ORDERED: PANT40TA3 PO (11:07)
--- NOTE | 2018-07-16 12:48 | DS.PDOC ---
Discharge Summary General Date of Admission Jul 09, 2018 at 03:16 Date of Discharge 07/16/18 Specialist/Consultants Involve: Trever Billingsley Specialist/Consultants Involve dr chua Discharge Summary PROCEDURES PERFORMED DURING STAY: EGD ADMITTING DIAGNOSES: 1. nausea/vomiting DISCHARGE DIAGNOSES: 1. BHARAT 2. hyperbilirubinemia 3. polysubstance abuse - heroin as per records, marijuana + urine tox 4. history of suicide attempt 5. asthma 6. seasonal allergies COMPLICATIONS/CHIEF COMPLAINT: Acute Kidney Failure.... HOSPITAL COURSE: 32 y/o M c/o worsening nausea, vomiting for past 2 days, inability to take PO food/liquid due to nausea/vomiting. No specific aggravating or relieving factor. Pt also c/o decreased urine output. Labs showed elevated BUN/cr Hospitalist service was consulted to admit the pt for further management. Patient continued to have intermittent nausea and vomiting. Seen by GI and underwent EGD, with recs for surgical consultation. Seen by surgery with recs for HIDA. HIDA unavailable in the hospital. Further d/w surgery, deemed safe for o/p f/u for HIDA at an outside facility. DISCHARGE MEDICATIONS: Please see below. ALLERGIES: Please see below. PHYSICAL EXAMINATION ON DISCHARGE: VITAL SIGNS: Please see below. GENERAL: NAD HEENT: NC/AT Lungs: CTA Heart: +S1S2, RRR Abd: soft, NT, +BS LABORATORY DATA: Please see below. ACTIVITY: [As tolerated]. DIET: As tolerated DISPOSITION: 01 Home, Self-Care. DISCHARGE INSTRUCTIONS: 1. Follow up with surgery in 1-5 days to schedule HIDA scan 2. Follow up with PCP in 3-5 days. 3. Avoid illicit drug use DISCHARGE CONDITION: [Stable]. TIME SPENT ON DISCHARGE: Greater than 30 minutes. Vital Signs/I&Os Vital Signs Date Time Temp Pulse Resp B/P (MAP) Pulse Ox O2 Delivery O2 Flow Rate FiO2 07/16/18 06:00 98.1 61 15 103/66 (78) 97 I&O- Last 24 Hours up to 6 AM 07/16/18 06:00 Intake Total 3500 ml Output Total 0 ml Balance 3500 ml Laboratory Data Labs 24H Laboratory Tests 2 07/16/18 05:42: Immature Granulocyte % (Auto) 0.5, White Blood Count 9.1, Red Blood Count 4.08L, Hemoglobin 12.4L, Hematocrit 35.2L, Mean Corpuscular Volume 86.3, Mean Corpuscular Hemoglobin 30.4, Mean Corpuscular Hemoglobin Concent 35.2, Red Cell Distribution Width 11.3L, Platelet Count 301, Neutrophils (%) (Auto) 55.6, Lymphocytes (%) (Auto) 29.1, Monocytes (%) (Auto) 12.5H, Eosinophils (%) (Auto) 1.9, Basophils (%) (Auto) 0.4, Neutrophils # (Auto) 5.1, Lymphocytes # (Auto) 2.7, Monocytes # (Auto) 1.1H, Eosinophils # (Auto) 0.2, Basophils # (Auto) 0.0, Nucleated Red Blood Cells % (auto) 0.0, Anion Gap 4L, Glomerular Filtration Rate > 60.0, Blood Urea Nitrogen 9, Creatinine 0.79, Sodium Level 138, Potassium Level 3.5, Chloride Level 107, Carbon Dioxide Level 27, Calcium Level 8.2L, Aspartate Amino Transf (AST/SGOT) 7, Alanine Aminotransferase (ALT/SGPT) 11L, Alkaline Phosphatase 61, Total Bilirubin 1.7H, Total Protein 6.0L, Albumin 3.3, Albumin/Globulin Ratio 1.22 CBC/BMP Laboratory Tests 07/16/18 05:42 Red Blood Count 4.08 L, Mean Corpuscular Volume 86.3, Mean Corpuscular Hemoglobin 30.4, Mean Corpuscular Hemoglobin Concent 35.2, Red Cell Distribution Width 11.3 L, Neutrophils (%) (Auto) 55.6, Lymphocytes (%) (Auto) 29.1, Monocytes (%) (Auto) 12.5 H, Eosinophils (%) (Auto) 1.9, Basophils (%) (Auto) 0.4, Neutrophils # (Auto) 5.1, Lymphocytes # (Auto) 2.7, Monocytes # (Auto) 1.1 H, Eosinophils # (Auto) 0.2, Basophils # (Auto) 0.0, Calcium Level 8.2 L, Aspartate Amino Transf (AST/SGOT) 7, Alanine Aminotransferase (ALT/SGPT) 11 L, Alkaline Phosphatase 61, Total Bilirubin 1.7 H, Total Protein 6.0 L, Albumin 3.3 Microbiology Microbiology 07/09/18 Blood Culture - Final, Complete NO GROWTH AFTER 5 DAYS 07/09/18 Blood Culture - Final, Complete NO GROWTH AFTER 5 DAYS Discharge Medications Scheduled Pantoprazole Sodium (Pantoprazole Sodium) 40 Mg Tablet.dr, 1 TAB PO DAILY Scheduled PRN Dicyclomine HCl (Dicyclomine HCl) 10 Mg Capsule, 10 MG PO TIDP PRN for CRAMPS Metoclopramide HCl (Metoclopramide HCl) 5 Mg Tablet, 5 MG PO Q6HP PRN for ABDOMINAL PAIN Simethicone (Simethicone) 80 Mg Tab.chew, 80 MG PO TIDP PRN for GAS PAIN Allergies Coded Allergies: No Known Allergies (Unverified , 02/14/18) DEONNA DELEON MD July 16, 2018 12:48
--- NOTE | 2018-07-18 09:29 | CR ---
DATE OF CONSULTATION: 07/15/2018 DATE OF ADMISSION: 07/09/2018 REASON FOR CONSULTATION: Possible gallbladder disease. HISTORY OF PRESENT ILLNESS: The patient is a 32-year-old male who presented with two days of nausea, vomiting and decreased urine output. He was admitted due to acute renal failure. He continued to have persistent nausea, vomiting during admission. GI was consulted, eventually taken for an upper endoscopy which was essentially normal. The only other thought that they had was some gallstones on his ultrasound so they recommended I evaluate him for possible gallbladder disease. Currently he is still nauseous, having a difficult time tolerating anything other than water, but his abdominal pain is more generalized and constant. There is no change in symptom when he is eating. He has persistent nausea, vomiting without any meals. Ultrasound was obtained which did show stones, but he had no wall thickening or fluid around it. Since HIDA scan is difficult to obtain inpatient right now they requested I consult for further recommendations. He has not had any symptoms like this in the past. No trauma to the abdomen. No recent illnesses. No one around him has been sick. He does smoke marijuana, which could contribute to his nausea and vomiting. No other obvious sources at this point. PAST MEDICAL HISTORY: Gastroesophageal reflux disease (GERD). Nicotine dependence. Marijuana abuse. History of drug abuse. Asthma. History of suicide attempt. PAST SURGICAL HISTORY: Tonsillectomy. Left inguinal hernia repair. ALLERGIES: None. HOME MEDICATIONS: None. SOCIAL HISTORY: Smokes daily tobacco and marijuana. Occasional social alcohol. No current drug abuse. FAMILY HISTORY: Noncontributory. REVIEW OF SYSTEMS: Pertinent positives and negatives as stated in the HPI. PHYSICAL EXAMINATION: GENERAL: Alert and oriented times three in acute distress. VITALS: Temperature 98, pulse 67, respirations 16, blood pressure 130/92, pulse ox 99% room air. HEENT: Pupils equally round and reactive to light and accommodation. HEART: S1-S2 regular rate and rhythm. LUNGS: Clear to auscultation bilaterally. ABDOMEN: Soft, nontender, nondistended. Bowel sounds positive. EXTREMITIES: No clubbing, cyanosis or edema. LABS: None obtained today. Labs from yesterday showed white count 10.2, hemoglobin 13.1, platelets 11.5, total bilirubin 2.1, direct bilirubin 0.3. Liver enzymes normal. IMAGING: Ultrasound of the gallbladder showed small mobile gallstones and sludge. No wall thickening or pericholecystic fluid. Negative sonographic Shell sign. No biliary duct dilatation. ASSESSMENT/PLAN: Patient is 32-year-old male with likely asymptomatic gallstones along with persistent nausea and vomiting. This could be related to biliary dyskinesia versus withdrawal from marijuana. Recommendation at this time is to get him somewhere where he can have a HIDA scan. There is not enough clear evidence at this point that his gallbladder is the problem. I recommended that we avoid cholecystectomy without a HIDA scan to prove that it is malfunctioning. Otherwise, he will run the very high risk that we take the gallbladder out and he was still have the persistent symptoms. Recommend slowly advancing diet, treat him with some Reglan, simethicone and Bentyl to help with the gas and the nausea. If he can tolerate a diet with those medications, he can be discharged. I can send him a script to get an outpatient HIDA scan done and if that comes back abnormal then we can plan for surgery at that time. All of his questions were answered.
== END 2018-07-16 11:20 | disposition home or self-care (01) | DRG 469 ==
LOC: M ED 23:47 → M ED INP 07-09 03:16 → M MSPAV 07-09 03:48
PROVIDERS: ADMIT Internal Medicine; ATTEND Internal Medicine
PROC: 0DJ08ZZ Inspection of Upper Intestinal Tract, Via Natural or Artificial Opening Endoscopic (ICD-10-PCS; principal; 2018-07-14 16:00)
DX: N17.9 Acute kidney failure, unspecified (principal); R17 Unspecified jaundice; A08.4 Viral intestinal infection, unspecified; J45.909 Unspecified asthma, uncomplicated; F12.10 Cannabis abuse, uncomplicated; F11.90 Opioid use, unspecified, uncomplicated; K21.9 Gastro-esophageal reflux disease without esophagitis; F17.200 Nicotine dependence, unspecified, uncomplicated; D72.829 Elevated white blood cell count, unspecified; E86.0 Dehydration; K44.9 Diaphragmatic hernia without obstruction or gangrene